=== PATIENT | female | born 1950 | race Caucasian/White ===

== ENCOUNTER → 2018-01-01 | Outpatient (CLI) | payer MEDICARE ==
[2018-01-01 12:27] LABS: HCT 40.9 % (34.0-46.0); HGB 13.7 gm/dL (11.4-16.0); MCH 29.5 pg (25.0-35.0); MCHC 33.6 g/dL (31.0-37.0); MCV 87.7 fL (80.0-100.0); Mean Platelet Volume 8.4; Platelet Count 206 k/uL (150-450); RBC 4.66 m/uL (3.80-5.40); RDW 13.8 % (11.5-15.5); WBC 5.4 k/uL (3.8-10.6)
[2018-01-01 12:44] LABS: Albumin 4.2 g/dL (3.5-5.0); Potassium 4.4 mmol/L (3.5-5.1); Total Bilirubin 0.4 mg/dL (0.2-1.3); Total Protein 6.5 g/dL (6.3-8.2)
== END | disposition home or self-care (01) ==
LOC: LABWHC1 11:22
PROVIDERS: ATTEND Internal Medicine
DX: Z13.228 Encounter for screening for other metabolic disorders (principal); Z13.220 Encounter for screening for lipoid disorders; Z13.0 Encounter for screening for diseases of the blood and blood-forming organs and certain disorders involving the immune mechanism; Z11.59 Encounter for screening for other viral diseases
CPT/HCPCS: 36415; 80053; 80061; 85027; 86803

== ENCOUNTER → 2021-11-24 | Outpatient (CLI) | payer MEDICARE ==
--- NOTE | 2021-11-24 14:34 | BD ---
EXAMINATION TYPE: Axial Bone Density DATE OF EXAM: 11/24/2021 COMPARISON: 07-14-2015 CLINICAL HISTORY: 71 years year old Female. ICD-10 CODE: M81.0 OSTEOPOROSIS Height: 164 Weight: 64.5 FRAX RISK QUESTIONS: Secondary Osteoporosis: RISK FACTORS HISTORY OF: Family History of Osteoporosis: YES MOM Postmenopausal woman: YES Lost more than 2 inches in height since high school: YES MEDICATIONS: Additional Medications: BP MEDS, CHOLESTEROL MEDS, ALLERGY MED Additional History: EXAM MEASUREMENTS: Bone mineral densitometry was performed using the [employer] System. Bone mineral density as measured about the Lumbar spine is: ----- L1-L4(G/cm2): 0.928 T Score Values are as follows: ----- L1: -1.6 ----- L2: -2.5 ----- L3: -2.4 ----- L4: -1.9 ----- L1-L4: -2.1 Bone mineral density has: Increased 3.6% since study of: 07-14-2015 Bone mineral density about the R hip (g/cm2): 0.875 Bone mineral density about the L hip (g/cm2): 0.858 T Score values are as follows: -----R Neck: -2.0 -----L Neck: -1.9 -----R Total: -1.1 -----L Total: -1.2 Bone mineral density has: Decreased 2.6% since study of: 07-14-2015 FRAX%s: The graph provided illustrates a 12.9% chance for a major osteoporotic fx and a 3.0% chance f or the hips probability for fx in 10 years time. IMPRESSION: Osteopenia (T Score between -2.5 and -1). There is slightly increased risk of fracture and the patient may be considered for treatment. Re-Screen 2-5 years. NOTE: T-SCORE=SD OF THE YOUNG ADULT MEAN.
== END | disposition home or self-care (01) ==
LOC: RADBDWWP 11:17
PROVIDERS: ATTEND Family Medicine
DX: M81.0 Age-related osteoporosis without current pathological fracture (principal)
CPT/HCPCS: 77080

== ENCOUNTER → 2022-01-04 | Outpatient (CLI) | payer MEDICARE ==
--- NOTE | 2022-01-04 13:20 | XR ---
EXAMINATION TYPE: XR scapula RT DATE OF EXAM: 01/04/2022 COMPARISON: NONE HISTORY: Pain TECHNIQUE: 2 views submitted FINDINGS: Hypertrophic spurring involving the humeral head with the diffuse osteopenia. No acute frac ture or dislocation as visualized. AC joint arthropathy noted IMPRESSION: Glenohumeral and AC joint arthropathy. No definite acute displaced fracture. If the patie nt point tender consider CT scan.
== END | disposition home or self-care (01) ==
LOC: RADXRMAIN 12:55
PROVIDERS: ATTEND Family Medicine
DX: M25.511 Pain in right shoulder (principal)

== ENCOUNTER → 2022-05-02 | Outpatient (CLI) | payer MEDICARE ==
--- NOTE | 2022-05-03 11:02 | MM ---
Reason for Exam: Screening (asymptomatic). Last mammogram was performed 6 year(s) and 10 month(s) ago. Patient History: Menarche at age 12. First Full-Term at age 15. Postmenopausal. Patient has history of breast feeding. 1989, Benign Excisional Biopsy on the right side. Risk Values: Bria 5 year model risk: 1.4%. NCI Lifetime model risk: 3.4%. Prior Study Comparison: 12/31/2007 Bilateral Screening Mammogram, [facility]. 02/01/2010 Bilateral Screening Mammogram, [facility]. 07/14/2015 Bilateral Screening Mammogram, [facility]. Tissue Density: The breast tissue is heterogeneously dense. This may lower the sensitivity of mammography. Findings: Analyzed By CAD. There are benign-appearing round and vascular calcifications scattered throughout the bilateral breasts. Benign-appearing bilateral axillary lymph nodes are redemonstrated. There is 8mm oval focal asymmetry in the anterior depth centrally in the right breast new from prior study. Overall Assessment: Incomplete: need additional imaging evaluation, BI-RAD 0 Management: Special View Mammogram of the right breast. A clinical breast exam by your physician is recommended on an annual basis and results should be correlated with mammographic findings. Electronically signed and approved by: Harley Slaughter M.D.
== END | disposition home or self-care (01) ==
LOC: RADMAMWWP 11:16
PROVIDERS: ATTEND Family Medicine
DX: Z12.31 Encounter for screening mammogram for malignant neoplasm of breast (principal); Z78.0 Asymptomatic menopausal state
CPT/HCPCS: 77063; 77067

== ENCOUNTER → 2022-05-09 | Outpatient (CLI) | payer MEDICARE ==
--- NOTE | 2022-05-09 14:29 | MM ---
Reason for Exam: Additional evaluation requested from abnormal screening. Last screening mammogram was performed less than 1 month ago. Patient History: Menarche at age 12. First Full-Term at age 15. Postmenopausal. Patient has history of breast feeding. 1989, Benign Excisional Biopsy on the right side. Risk Values: Bria 5 year model risk: 1.4%. NCI Lifetime model risk: 3.4%. Prior Study Comparison: 11/06/2003 Bilateral Screening Mammogram, [facility]. 05/04/2006 Bilateral Screening Mammogram, [facility]. 05/15/2006 Right Diagnostic Mammogram, [facility]. 12/31/2007 Bilateral Screening Mammogram, [facility]. 02/01/2010 Bilateral Screening Mammogram, [facility]. 07/14/2015 Bilateral Screening Mammogram, [facility]. 05/02/2022 Bilateral MG 3D screening mammo w/cad, [facility]. Tissue Density: Right: The breast tissue is heterogeneously dense. This may lower the sensitivity of mammography. Findings: Analyzed By CAD. Benign appearing round and vascular calcifications demonstrated. 8 mm oval focal asymmetry within the central right breast middle depth marginally persists with compression. Overall Assessment: Incomplete: need additional imaging evaluation, BI-RAD 0 Management: Diagnostic Breast Ultrasound of the right breast. A clinical breast exam by your physician is recommended on an annual basis and results should be correlated with mammographic findings. This exam should not preclude additional follow-up of suspicious palpable abnormalities. Results were given to the patient verbally at the time of exam. Electronically signed and approved by: Get Amaya D.O.
--- NOTE | 2022-05-09 14:53 | USB ---
Reason for Exam: Additional evaluation requested from abnormal screening. Patient History: Menarche at age 12. First Full-Term at age 15. Postmenopausal. Patient has history of breast feeding. 1990, Benign Excisional Biopsy on the right side. Risk Values: Bria 5 year model risk: 1.4%. NCI Lifetime model risk: 3.4%. Prior Study Comparison: 02/01/2010 Bilateral Screening Mammogram, [facility]. 07/14/2015 Bilateral Screening Mammogram, [facility]. 05/02/2022 Bilateral MG 3D screening mammo w/cad, [facility]. Findings: The upper inner quadrant of the right breast, the axilla of the right breast and the retroareolar of the right breast were scanned. Targeted ultrasound of the right breast from 11-12 o'clock with evaluation the nipple and axilla was obtained. There is a questionable irregular antiparallel mass with ill-defined borders without internal vascularity versus heterogenous parenchyma. This is demonstrated at 12:00 6 cm from the nipple. This area is not really measurable due to is indistinctness. Overall Assessment: Probably benign, BI-RAD 3 Management: Diagnostic Mammogram of the right breast in 6 months. Diagnostic Breast Ultrasound of the right breast in 6 months. A clinical breast exam by your physician is recommended on an annual basis and results should be correlated with mammographic findings. This exam should not preclude additional follow-up of suspicious palpable abnormalities. Results were given to the patient verbally at the time of exam. Electronically signed and approved by: Get Amaya D.O.
== END | disposition home or self-care (01) ==
LOC: RADMAMWWP 13:35
PROVIDERS: ATTEND Family Medicine
DX: R92.8 Other abnormal and inconclusive findings on diagnostic imaging of breast (principal); Z78.0 Asymptomatic menopausal state
CPT/HCPCS: 77065; 76642; G0279; 77061

== ENCOUNTER → 2022-12-14 | Outpatient (CLI) | payer MEDICARE ==
--- NOTE | 2022-12-14 15:19 | MM ---
Reason for Exam: Follow-up at short interval from prior study. Last screening mammogram was performed 7 month(s) ago. Patient History: Menarche at age 12. First Full-Term at age 15. Postmenopausal. Patient has history of breast feeding. 1989, Benign Excisional Biopsy on the right side. Risk Values: Bria 5 year model risk: 1.4%. NCI Lifetime model risk: 3.2%. Prior Study Comparison: 07/14/2015 Bilateral Screening Mammogram, [facility]. 05/02/2022 Bilateral MG 3D screening mammo w/cad, [facility]. 05/09/2022 Right MG 3D work up w/cad RT, [facility]. Tissue Density: Right: There are scattered fibroglandular densities. Findings: Analyzed By CAD. The previous central oval nodularity has resolved. Benign vascular calcifications. Additionally, a few scattered benign round calcifications are also redemonstrated. No significant change from prior exams. Overall Assessment: Benign, BI-RAD 2 Management: Screening Mammogram of both breasts in 6 months. 1. In time for the patient's annual exam. New 2. Patient should continue monthly self breast exams. 3. These result should not preclude additional follow-up of suspicious palpable abnormal knees. Note on Bria scores and lifetime risk: 1. A Bria score greater than 3% is considered moderate risk. If this is the case, consider specialist referral to assess eligibility for a risk reducing agent. 2. If overall lifetime risk for the development of breast cancer is 20% or higher, the patient may qualify for future screening with alternating mammogram and breast MRI. Electronically signed and approved by: Jayne Hu M.D. Radiologist
== END | disposition home or self-care (01) ==
LOC: RADMAMWWP 14:53
PROVIDERS: ATTEND Family Medicine
DX: R92.8 Other abnormal and inconclusive findings on diagnostic imaging of breast (principal); Z78.0 Asymptomatic menopausal state
CPT/HCPCS: 77065; G0279; 77061

== ENCOUNTER → 2023-08-29 | Outpatient (CLI) | payer MEDICARE ==
--- NOTE | 2023-08-30 13:32 | US ---
EXAMINATION TYPE: US kidneys/renal and bladder DATE OF EXAM: 08/29/2023 COMPARISON: NONE CLINICAL INDICATION: Female, 72 years old with history of R31.9 HEMATURIA; EXAM MEASUREMENTS: Right Kidney: 10.0 x 3.8 x 4.4 cm Left Kidney: 10.7 x 4.7 x 5.3 cm Post Void Residual Volume: 13.9 mL Right Kidney: Shadowing echogenic focus noted measuring 0.79cm; cystic area measuring 1.6 x 1.3 x 1.3 cm Left Kidney: Multiple shadowing echogenic foci with largest measuring 1.74 cm; mild to moderate hydro nephrosis. Bladder: wnl Bilateral Jets seen: Yes Normal Post Void Residual: Yes Renal cortex thickness and echogenicity normal. IMPRESSION: 1. Bilateral nephrolithiasis with mild to moderate left hydronephrosis. 2. Simple appearing right renal cyst.
== END | disposition home or self-care (01) ==
LOC: RADUSWWP 15:51
PROVIDERS: ATTEND Family Medicine
DX: N13.2 Hydronephrosis with renal and ureteral calculous obstruction (principal); N28.1 Cyst of kidney, acquired; R31.9 Hematuria, unspecified
CPT/HCPCS: 76770

== ENCOUNTER → 2023-09-17 | Outpatient (CLI) | payer MEDICARE ==
--- NOTE | 2023-09-21 10:08 | CT ---
EXAMINATION TYPE: CT abdomen pelvis wo con DATE OF EXAM: 09/17/2023 COMPARISON: None INDICATION: renal stones/hematuria DLP: 360.9 mGycm, Automated exposure control for dose reduction was used. CONTRAST: 0 mL of Isovue 300. Study performed without Oral Contrast TECHNIQUE: Axial images were obtained from above the diaphragm to the pubic rami in the axial plane a t 5 mm thick sections. Reconstructed images are reviewed on the computer in the coronal plane. FINDINGS: Limited CT sections are obtained the lung bases. The lung bases are clear. There is a tiny pericard ial effusion. CT ABDOMEN: Liver: Couple of cysts within the superior right lobe liver measuring 1.9 and 1.3 cm. Spleen: Normal Pancreas: Normal Adrenal glands: The adrenal glands are normal. Gallbladder: Normal Kidneys: No masses are evident. No hydronephrosis is present. No cysts are present. There is a 0.6 cm nonobstructing renal stone at the mid right kidney. There is a large staghorn calculus at the lef t renal pelvis with maximum dimensions of 2.8 x 1.6 cm with extension towards the inferior pole and p osterior mid left kidney. Mild upper pole hydronephrosis may be present. Ureters appear normal. Aorta: Vascular calcification is within the aorta. Inferior vena cava: Normal. CT PELVIS: Loops of bowel within the abdomen and pelvis are normal. The study is without oral contrast limit ing bowel evaluation. Note is made of scattered diverticuli within the sigmoid colon. No adjacent inf lammatory changes evident. Appendix: Not visualized. No suspicious dilated tubular structure or inflammatory changes evident. Urinary bladder: Decompressed with limited evaluation. Genitourinary structures: Uterus appears unremarkable. Adnexa are normal. Osseous structures: No suspicious lytic or sclerotic lesions. IMPRESSION: 1. Staghorn type calculus left renal pelvis. Some mild left upper pole hydronephrosis is present. 2. Nonobstructing right renal stone. 3. Diverticulosis without acute diverticulitis. 4. Minimal pericardial effusion. 5. Hepatic cysts.
== END | disposition home or self-care (01) ==
LOC: RADCTMAIN 13:17
PROVIDERS: ATTEND Family Medicine
DX: K76.89 Other specified diseases of liver (principal); I31.39 Other pericardial effusion (noninflammatory); N28.83 Nephroptosis; K57.30 Diverticulosis of large intestine without perforation or abscess without bleeding; N13.2 Hydronephrosis with renal and ureteral calculous obstruction; R31.9 Hematuria, unspecified
CPT/HCPCS: 74176

== ENCOUNTER → 2023-12-13 | Outpatient (CLI) | payer MEDICARE ==
[2023-12-13 15:16] LABS: BUN/Creat Ratio 14.11 Ratio (12.00-20.00); Blood Urea Nitrogen 12.7 mg/dL (9.0-27.0); Calcium 9.2 mg/dL (8.7-10.3); Carbon Dioxide 21.4 mmol/L (21.6-31.8); Chloride 107 mmol/L (96-109); Glucose 113 mg/dL (70-110); Sodium 141 mmol/L (135-145)
[2023-12-13 15:54] LABS: Appearance,Urine Clear (Clear); Bilirubin,Urine Negative (Negative); Blood,Urine Small (Negative); Color,Urine Yellow (Yellow); Ketones,Urine Negative (Negative); Nitrite,Urine Negative (Negative); Specific Gravity,Urine 1.009 (1.001-1.030); Urobilinogen,Urine 0.2 E.U./DL
[2023-12-13 15:57] LABS: Bacteria,Urine None Seen (None Seen)
[2023-12-13 16:50] LABS: HCT 42.4 % (37.2-46.3); HGB 13.9 g/dL (12.0-15.0); MCHC 32.8 g/dL (32.0-37.0); MCV 91.4 FL (80.0-97.0); Mean Platelet Volume 11.4 FL (9.5-12.2); NRBC Per 100 WBC 0 X 10*3/uL (0.00-0.01); Platelet Count 192 X 10*3/uL (140-440); RBC 4.64 X 10*6/uL (4.10-5.20); RDW 13.3 % (11.5-14.5); WBC 4.83 X 10*3/uL (4.50-10.00)
[2023-12-13 16:51] LABS: Basophils # (A) 0.03 X 10*3/uL (0.00-0.10); Basophils % (A) 0.6 %; Eosinophils # (A) 0.08 X 10*3/uL (0.04-0.35); Eosinophils % (A) 1.7 %; Lymphocytes # (A) 1.67 X 10*3/uL (0.90-5.00); Lymphocytes % (A) 34.6 %; Monocytes # (A) 0.33 X 10*3/uL (0.20-1.00); Monocytes % (A) 6.8 %; Neutrophils # (A) 2.71 X 10*3/uL (1.80-7.70); Neutrophils % (A) 56.1 %
== END | disposition home or self-care (01) ==
LOC: LABPAT 10:39
PROVIDERS: ATTEND Urology
DX: Z01.812 Encounter for preprocedural laboratory examination (principal); N20.0 Calculus of kidney
CPT/HCPCS: 80048; 81001; 85025; 87086

== ENCOUNTER 2023-12-23 08:25 | Emergency (ER) | payer MEDICARE ==
[2023-12-23 08:31] VITALS: RESP 16
[2023-12-23 09:51] LABS: Basophils % (A) 0 %; Eosinophils % (A) 0 %; HCT 32.2 % (34.0-46.0); HGB 11.2 gm/dL (11.4-16.0); Lymphocytes # (A) 0.8 k/uL (1.0-4.8); Lymphocytes % (A) 8 %; MCH 31.4 pg (25.0-35.0); MCHC 34.6 g/dL (31.0-37.0); MCV 90.8 fL (80.0-100.0); Mean Platelet Volume 8.9; Monocytes # (A) 0.6 k/uL (0-1.0); Monocytes % (A) 6 %; Neutrophils # (A) 8.4 k/uL (1.3-7.7); Neutrophils % (A) 84 %; Platelet Count 227 k/uL (150-450); RBC 3.55 m/uL (3.80-5.40)
[2023-12-23] MEDS: SODIUM CHLORIDE 0.9% 500 ML 500 ML IV ONE (10:04)
[2023-12-23 10:41] LABS: ALT 41 U/L (4-34); AST 41 U/L (14-36); African American GFR (CKD) 81 (>60 ml/min/1.73 sqM); Albumin 3.3 g/dL (3.5-5.0); Alkaline Phosphatase 74 U/L (38-126); Anion Gap 6 mmol/L; Blood Urea Nitrogen 17 mg/dL (7-17); Calcium 8.9 mg/dL (8.4-10.2); Carbon Dioxide 25 mmol/L (22-30); Chloride 106 mmol/L (98-107); Glucose 113 mg/dL (74-99); Non-African American GFR(CKD) 70 (>60 ml/min/1.73 sqM); Potassium 3.5 mmol/L (3.5-5.1); Sodium 137 mmol/L (137-145); Total Bilirubin 1.1 mg/dL (0.2-1.3); Total Protein 5.8 g/dL (6.3-8.2)
--- NOTE | 2023-12-23 11:11 | ED ---
General Adult HPI - General Chief complaint: Recheck/Abnormal Lab/Rx Stated complaint: cath malfunction Time Seen by Provider: 12/23/23 08:31 Source: patient, RN notes reviewed Mode of arrival: ambulatory Limitations: no limitations - History of Present Illness Initial comments: 73-year-old female presents emergency department chief complaint of complica tions with nephrostomy. Patient had nephrostomy placed on Sunday with and radiology. Patient states that she did have blood initially then turned to urine color but states that she has some blood back in her bag in which she is unsure if it is clogged. Patient states she has no increase in pain. There was some minimal oozing around her site. Denies any fevers chills. - Related Data Home Medications Medication Instructions Recorded Confirmed Fexofenadine/Pseudoephedrine 1 tab PO DAILY 12/14/23 12/14/23 [Kaitlin-D 24 Hour Tablet] Metoprolol Tartrate 25 mg PO QAM 12/14/23 12/14/23 Cephalexin [Keflex] See Rx Instructions .ROUTE .COMPLEX 12/18/23 12/18/23 Previous Rx's Medication Instructions Recorded Ketorolac [Toradol] 10 mg PO Q6HR PRN #15 tab 12/19/23 Allergies Allergy/AdvReac Type Severity Reaction Status Date / Time No Known Allergies Allergy Verified 12/23/23 08:31 Review of Systems ROS Statement: Those systems with pertinent positive or pertinent negative responses have been documented in the HPI. ROS Other: All systems not noted in ROS Statement are negative. Past Medical History Past Medical History: Hearing Disorder / Deafness, Hyperlipidemia, Osteoarthritis (OA) Additional Past Medical History / Comment(s): Hx heart palpitations. Slightly hard of hearing. Seasonal allergies, gets frequent build up phelgm. History of Any Multi-Drug Resistant Organisms: None Reported Past Surgical History: Breast Surgery Additional Past Surgical History / Comment(s): Cataract surgery, breast biopsy, procedure for endometriosis. Past Anesthesia/Blood Transfusion Reactions: No Reported Reaction Past Psychological History: No Psychological Hx Reported Smoking Status: Never smoker Past Alcohol Use History: None Reported Past Drug Use History: Marijuana - Past Family History Mother Family Medical History: No Reported History General Exam Limitations: no limitations General appearance: alert, in no apparent distress Head exam: Present: atraumatic, normocephalic, normal inspection Eye exam: Present: normal appearance, PERRL, EOMI. Absent: scleral icterus, conjunctival injection, periorbital swelling ENT exam: Present: normal exam, mucous membranes moist Neck exam: Present: normal inspection, full ROM. Absent: tenderness, meningismus, lymphadenopathy Respiratory exam: Present: normal lung sounds bilaterally. Absent: respiratory distress, wheezes, rales, rhonchi, stridor Cardiovascular Exam: Present: normal rhythm, tachycardia, normal heart sounds. Absent: systolic murmur, diastolic murmur, rubs, gallop, clicks GI/Abdominal exam: Present: soft, normal bowel sounds. Absent: distended, tenderness, guarding, rebound, rigid Back exam: Present: other (Nephrostomy left sided, blood noted within the bag). Absent: CVA tenderness (R), CVA tenderness (L) Course Vital Signs 12/23/23 12/23/23 08:26 11:40 Temperature 98.0 F 98.9 F Pulse Rate 116 H 77 Respiratory 16 16 Rate Blood Pressure 151/73 145/71 O2 Sat by Pulse 97 98 Oximetry Medical Decision Making - Medical Decision Making Was pt. sent in by a medical professional or institution (, PA, CONSULTING ANALYST, urgent care, hospital, or half-way...) When possible be specific @ -No Did you speak to anyone other than the patient for history (EMS, parent, family, police, friend...)? What history was obtained from this source @ -No Did you review nursing and triage notes (agree or disagree)? Why? @ -I reviewed and agree with nursing and triage notes Were old charts reviewed (outside hosp., previous admission, EMS record, old EKG, old radiological studies, urgent care reports/EKG's, half-way records)? Report findings @ -No old charts were reviewed Differential Diagnosis (chest pain, altered mental status, abdominal pain women, abdominal pain men, vaginal bleeding, weakness, fever, dyspnea, syncope, head ache, dizziness, GI bleed, back pain, seizure, CVA, palpatations, mental health, musculoskeletal)? @ -Differential Abdominal Pain Women: Appendicitis, Cholecystitis, diverticulosis, ischemic bowel, pancreatitis, hepatitis, UTI, gastroenteritis, AAA, incarcerated hernia, bowel obstruction, constipation, inflammatory bowel, hepatitis, peptic ulcer disease, splenic infarction, perforated viscus, vulvitis, ovarian torsion, PID, kidney stone, placenta abruption, this is not meant to be an all-inclusive list EKG interpreted by me (3pts min.). @ -As above X-rays interpreted by me (1pt min.). @ -None done CT interpreted by me (1pt min.). @ -None done U/S interpreted by me (1pt. min.). @ -None done What testing was considered but not performed or refused? (CT, X-rays, U/S, labs)? Why? @ -None What meds were considered but not given or refused? Why? @ -None Did you discuss the management of the patient with other professionals (professionals i.e. DrCastillo, PA, CONSULTING ANALYST, lab, RT, psych nurse, social insurance analyst, health aid, teacher, us customs and border officer, case preparer and liner)? Give summary @ -I discussed case with Dr.coury luke who came and evaluated patient and checked on her twice with no worsening symptoms. Patient has an appointment the morning with urology Was smoking cessation discussed for >3mins.? @ -No Was critical care preformed (if so, how long)? @ -No Were there social determinants of health that impacted care today? How? (Homelessness, low income, unemployed, alcoholism, drug addiction, transportation, low edu. Level, literacy, decrease access to med. care, fpc, rehab)? @ -No Was there de-escalation of care discussed even if they declined (Discuss DNR or withdrawal of care, Hospice)? DNR status @ -No What co-morbidities impacted this encounter? (DM, HTN, Smoking, COPD, CAD, Cancer, CVA, ARF, Chemo, Hep., AIDS, mental health diagnosis, sleep apnea, morbid obesity)? @ -None Was patient admitted / discharged? Hospital course, mention meds given and route, prescriptions, significant lab abnormalities, going to OR and other pertinent info. @ -Discharge patient's hemoglobin is stable. Patient was eval by urology twice and there is been no worsening symptoms. Patient will follow-up in office tomorrow. Undiagnosed new problem with uncertain prognosis? @ -No Drug Therapy requiring intensive monitoring for toxicity (Heparin, Nitro, Insulin, Cardizem)? @ -No Were any procedures done? @ -No Diagnosis/symptom? @ -Nephrostomy bleeding Acute, or Chronic, or Acute on Chronic? @ -Acute Uncomplicated (without systemic symptoms) or Complicated (systemic symptoms)? @ -[Uncomplicated Side effects of treatment? @ -No Exacerbation, Progression, or Severe Exacerbation? @ -No Poses a threat to life or bodily function? How? (Chest pain, [place], [place], pneumonia, PE, COPD, DKA, ARF, appy, cholecystitis, CVA, Diverticulitis, Homicidal, Suicidal, threat to staff... and all critical care pts) @ -No - Lab Data Result diagrams: 12/23/23 09:30 12/23/23 09:30 Lab Results 12/23/23 12/23/23 12/23/23 Range/Units 09:30 09:30 09:30 WBC 10.0 (3.8-10.6) k/uL RBC 3.55 L (3.80-5.40) m/uL Hgb 11.2 L (11.4-16.0) gm/dL Hct 32.2 L (34.0-46.0) % MCV 90.8 (80.0-100.0) fL MCH 31.4 (25.0-35.0) pg MCHC 34.6 (31.0-37.0) g/dL RDW 13.0 (11.5-15.5) % Plt Count 227 (150-450) k/uL MPV 8.9 Neutrophils % 84 % Lymphocytes % 8 % Monocytes % 6 % Eosinophils % 0 % Basophils % 0 % Neutrophils # 8.4 H (1.3-7.7) k/uL Lymphocytes # 0.8 L (1.0-4.8) k/uL Monocytes # 0.6 (0-1.0) k/uL Eosinophils # 0.0 (0-0.7) k/uL Basophils # 0.0 (0-0.2) k/uL Sodium 137 (137-145) mmol/L Potassium 3.5 (3.5-5.1) mmol/L Chloride 106 (98-107) mmol/L Carbon Dioxide 25 (22-30) mmol/L Anion Gap 6 mmol/L BUN 17 (7-17) mg/dL Creatinine 0.82 (0.52-1.04) mg/dL Est GFR (CKD-EPI)AfAm 81 (>60 ml/min/1.73 sqM) Est GFR (CKD-EPI)NonAf 70 (>60 ml/min/1.73 sqM) Glucose 113 H (74-99) mg/dL Plasma Lactic Acid Chuck 0.9 (0.7-2.0) mmol/L Calcium 8.9 (8.4-10.2) mg/dL Total Bilirubin 1.1 (0.2-1.3) mg/dL AST 41 H (14-36) U/L ALT 41 H (4-34) U/L Alkaline Phosphatase 74 (38-126) U/L Total Protein 5.8 L (6.3-8.2) g/dL Albumin 3.3 L (3.5-5.0) g/dL Disposition Clinical Impression: Nephrostomy tube bleed Disposition: HOME SELF-CARE Condition: Stable Additional Instructions: Please return to the Emergency Department if symptoms worsen or any other concerns. Is patient prescribed a controlled substance at d/c from ED?: No Referrals: Todd Romo MD [Primary Care Provider] - 1-2 days Time of Disposition: 12:07
[2023-12-23 13:03] VITALS: BP 145/71; PULSE 77; TEMP 98.9
== END 2023-12-23 13:03 | disposition home or self-care (01) ==
LOC: EC 08:25
DX: N99.520 Hemorrhage of incontinent external stoma of urinary tract (principal)
CPT/HCPCS: 36415; 80053; 83605; 85025; 99283

== ENCOUNTER 2023-12-27 23:50 | Inpatient (IN) | payer MEDICARE ==
[~2023-12-27 23:50] MED LIST: ALPRAZolam 0.25 MG TAB ONE
[2023-12-28] MEDS ORDERED: SODIUM CHLORIDE 0.9% IRRIG 3,000 ML BAG IRRIGATION ONE (00:01)
[2023-12-28] MEDS ORDERED: MAGNESIUM SULFATE-D5W PMX 100 ML IVPB ONE ×2 (00:59→03:29)
[2023-12-28] MEDS ORDERED: traMADol 50 MG TAB ONE (02:49)
[2023-12-28] MEDS ORDERED: ALPRAZolam 0.25 MG TAB ONE ×2 (13:23→15:47)
[2023-12-28] MEDS ORDERED: SODIUM CHLORIDE 0.9% 1,000 ML BAG ONE (16:25)
[2023-12-28] MEDS ORDERED: ACETAMINOPHEN TAB 325 MG TAB ONE (23:53)
[2023-12-29] MEDS ORDERED: SODIUM CHLORIDE 0.9% IRRIG 3,000 ML BAG IRRIGATION ONE (00:01)
[2023-12-29] MEDS ORDERED: ALPRAZolam 0.25 MG TAB ONE ×2 (09:23→18:28)
[2023-12-29] MEDS ORDERED: traMADol 50 MG TAB ONE (21:16)
[2023-12-30] MEDS ORDERED: METOPROLOL TARTRATE 25 MG TAB ONE (09:05)
[2023-12-30] MEDS ORDERED: ALPRAZolam 0.25 MG TAB ONE ×2 (09:05→21:32)
[2023-12-30] MEDS ORDERED: SODIUM CHLORIDE 0.9% IRRIG 3,000 ML BAG IRRIGATION ONE (10:30)
[2023-12-30] MEDS ORDERED: traMADol 50 MG TAB ONE (14:07)
[2023-12-31] MEDS ORDERED: traMADol 50 MG TAB ONE (00:54)
[2023-12-31] MEDS ORDERED: SODIUM CHLORIDE 0.9% IRRIG 3,000 ML BAG IRRIGATION ONE (08:12)
[2023-12-31] MEDS ORDERED: METOPROLOL TARTRATE 25 MG TAB ONE (08:57)
[2023-12-31] MEDS ORDERED: ACETAMINOPHEN TAB 325 MG TAB ONE (12:50)
[2023-12-31] MEDS ORDERED: ALPRAZolam 0.25 MG TAB ONE (17:09)
[2024-01-01] MEDS ORDERED: traMADol 50 MG TAB ONE (00:09)
[2024-01-01] MEDS ORDERED: SODIUM CHLORIDE 0.9% IRRIG 3,000 ML BAG IRRIGATION ONE (08:00)
[2024-01-01] MEDS ORDERED: METOPROLOL TARTRATE 25 MG TAB ONE (08:06)
[2024-01-01] MEDS ORDERED: ALPRAZolam 0.25 MG TAB ONE ×2 (09:01→16:38)
--- NOTE | 2024-01-14 11:08 | CT ---
EXAM: CT abdomen pelvis without contrast INDICATION: Patient age:RUDY SHEPPARD : 1950 Reason for study: RECENT NEPHROSTOMY TUBE, BLEEDING, PAIN, DLP 472.2 NO CONTRAST COMPARISON: None, please note PACS downtime occurred during the radiologist interpretation of these i mages with limited priors/reports.. TECHNIQUE: CT abdomen pelvis with axial imaging and sagittal and coronal reformats without IV or oral contrast. Lack of IV or oral contrast limits evaluation of solid and hollow organ viscera.. One or more CT dose reduction strategies were utilized during this examination. Total DLP administered was 472.2 mGycm. FINDINGS: LOWER CHEST: Unremarkable ABDOMEN LIVER: Simple appearing cyst. GALLBLADDER AND BILE DUCTS: Unremarkable. PANCREAS: Unremarkable. SPLEEN: Unremarkable. ADRENAL GLANDS: Unremarkable. KIDNEYS AND URETERS: Nephrostomy tube is no longer visualized. There is a large fluid collections in the bladder likely representing hematoma measuring up to 10.1 x 7.7 x 8.1 cm. High density material e xtends to the left renal collecting system and the renal sinus and down to the bladder through the ur eter. Nonobstructing right renal calculus measuring 6 mm. PELVIS BLADDER: Masslike fluid collection the bladder likely representing blood products hematoma measuring up to 10.1 x 7.7 x 8.1 cm. REPRODUCTIVE: Unremarkable. ABDOMEN & PELVIS STOMACH AND BOWEL: Scattered colonic diverticula. Stomach and duodenum are unremarkable. No evidence of bowel obstruction. PERITONEUM: No evidence of pneumoperitoneum or free fluid. VASCULATURE: Mild atherosclerotic calcifications are present throughout the abdominal aorta and its b ranches. MUSCULOSKELETAL: No acute osseous abnormalities grade 2 anterolisthesis of L5 on S1 with bilateral sp ondylolysis. LYMPH NODES: No gross evidence for lymphadenopathy. SOFT TISSUE/ABDOMINAL WALL: Nephrostomy tract extends from the left kidney with small hematoma in the perinephric fat and possibly along the course of the nephrostomy tube to the skin. IMPRESSION: 1. High density blood products extending throughout the left renal collecting system from the kidney to the urinary bladder. Masslike fluid collection the bladder likely representing blood products hem atoma measuring up to 10.1 x 7.7 x 8.1 cm. Urology consultation recommended. 2. Additional blood products extend to the skin surface from the left kidney likely in place of prio r nephrostomy tube. 3. Nonobstructing right renal calculus. 4. Grade 2 anterolisthesis of L5 on S1 with bilateral spondylolysis.
--- NOTE | 2024-01-25 17:01 | XR ---
EXAMINATION TYPE: XR chest 1V portable DATE OF EXAM: 01/25/2024 4:55 PM CLINICAL INDICATION: Female, 73 years old with history of ANTERIOR CHEST PAIN; [facility] COMPARISON: Chest radiographs from 12/18/2023. TECHNIQUE: XR chest 1V portable Frontal view of the chest. FINDINGS: Lungs/Pleura: There is flattening of the diaphragm with increased lucency of the lungs. No evidence o f pneumothorax, pleural effusion or focal consolidation. Pulmonary vascularity: Unremarkable. Heart/mediastinum: Cardiomediastinal silhouette is unremarkable. Musculoskeletal: No acute osseous pathology. IMPRESSION: 1. No acute cardiopulmonary disease process. 2. COPD changes.
--- NOTE | 2024-01-31 13:58 | PN ---
PROGRESS NOTE DATE OF SERVICE: 12/29/2023 She is in [address] [place] [address]. SUBJECTIVE: The patient underwent a left percutaneous nephrolithotomy, approximately December 19, 2023. Her nephrostomy tube was removed on December 24, 2023. She is now admitted with urinary clot retention. Her hemoglobin level yesterday was 7.9. Continuous bladder irrigation is running. She feels well. In fact, she states that her appetite is improved and she denies any pain. She denies lightheadedness and dizziness. PHYSICAL EXAMINATION: The abdomen is soft, nontender, and nondistended. The Greenfield catheter is draining pink urine without clots, with continuous bladder irrigation running. IMPRESSION: Post percutaneous nephrolithotomy bleed. PLAN: Repeat CBC. Transfusion will be recommended if the hemoglobin level is below 7. I have explained to the patient that if the hematuria persists and her hemoglobin level continues to drop despite transfusions, she may require transfer to a tertiary care center for left renal angiography with selective embolization. MMODL / IJN: [id number] /
--- NOTE | 2024-02-04 09:10 | PN ---
PROGRESS NOTE Ms. Wong is status post percutaneous nephrostolithotomy by Dr. Page. This was done last week. The nephrostomy tube was removed. She has had post percutaneous nephrostolithotomy bleeding. She has required transfusion. She is seen by Dr. Tobias this past week. The catheter urine is almost clear. She is feeling well. Her hemoglobin is pending from today. We will continue to observe another 24 hours. I did discuss at length the potential need for transfer to the hospital where Interventional Radiology can do angiography and embolization. We will continue to follow this patient. MMODL / IJN: [id number] /
--- NOTE | 2024-02-04 09:28 | PN ---
PROGRESS NOTE Mrs. Wong is in the hospital post percutaneous nephrolithotomy and kidney bleed. She has required transfusion. The bleeding seemed to have settled down. In the last 24, there has been no active bleeding that I can see. Her hemoglobin yesterday was elevated after the transfusion. She is having no pain. Her vital signs are stable. I will discontinue the bladder irrigation and leave the catheter to gravity in the intravenous fluids. Her hemoglobin has been drawn today. We will check that result. We will slowly increase her activity and I anticipate discharge provided no active bleeding within probably the next 48 hours. MMODL / IJN: [id number] /
--- NOTE | 2024-02-21 15:12 | PN ---
PROGRESS NOTE DATE OF SERVICE: 12/30/2023 REASON FOR VISIT: Post PCNL, hematuria. HISTORY OF PRESENT ILLNESS: The patient underwent a left percutaneous nephrolithotomy on December 18, 2023. Her nephrostomy tube was removed on December 24, 2023. She was subsequently admitted for gross hematuria with clots. She currently reports bladder pressure, and states that she is voiding around the catheter. PHYSICAL EXAMINATION: GENERAL: The patient is a well-developed, well-nourished, white female, who appears mildly uncomfortable. VITAL SIGNS: Temperature 98.9, pulse 96, respiration 18, blood pressure 96/59. Examination by system: ABDOMEN: Soft, but suprapubic distention noted. PERTINENT LABORATORY VALUES: The hemoglobin level today was 7.1, down from 8.0 yesterday. IMPRESSION: Persistent urinary clot retention. PLAN: The patient's Greenfield catheter could not be irrigated. Therefore, I removed the catheter and replaced the 22-Fench, 3-way Greenfield catheter under sterile conditions. I subsequently irrigated several hundred mL of clot from the bladder. Once I was confident that all clot was removed, continuous bladder irrigation was resumed with faintly pink outflow. The patient tolerated the procedure well and was comfortable upon completion of this. The patient will receive 1 unit of packed RBCs. The hemoglobin level will continue to be monitored. If the hematuria persists, she will require referral to a tertiary care center for left renal arteriogram with selective embolization. OMRENO / IJN: [id number] / MTDD
== END 2024-01-01 17:40 | disposition short-term general hospital (02) | DRG 920 ==
LOC: DISRECOVER 23:50 → UNDOADMIN 12-28 05:45 → 3NCARDOBS 12-28 05:45 → UNDODISIN 01-01 17:40
PROVIDERS: ADMIT Family Medicine; ATTEND Family Medicine
PROC: 30233N1 Transfusion of Nonautologous Red Blood Cells into Peripheral Vein, Percutaneous Approach (ICD-10-PCS; principal; 2023-12-31)
DX: N99.820 Postprocedural hemorrhage of a genitourinary system organ or structure following a genitourinary system procedure (principal); I42.1 Obstructive hypertrophic cardiomyopathy; R31.0 Gross hematuria; I08.0 Rheumatic disorders of both mitral and aortic valves; R55 Syncope and collapse; D64.9 Anemia, unspecified; E83.42 Hypomagnesemia
CPT/HCPCS: 74176; 86850; 86900; 86901; 93005; 93306; 96360; 99285

== ENCOUNTER → 2024-02-07 | Outpatient (CLI) | payer MEDICARE | END | disposition home or self-care (01) | LOC: RADECHMAIN 13:24 | PROVIDERS: ATTEND Family Medicine | DX: Z53.9 Procedure and treatment not carried out, unspecified reason (principal) ==